=== PATIENT | female | born 1975 | race Caucasian/White ===

== ENCOUNTER 2019-03-20 00:03 | Emergency (ER) | payer OTHER ==
--- NOTE | 2019-03-20 01:03 | ER Document Report ---
ED Extremity Problem, Lower - General Chief Complaint: Feet Swelling Stated Complaint: SWOLLEN FEET Time Seen by Provider: 03/20/19 00:48 Notes: Patient is a 43-year-old female that comes emergency department for chief complaint of swelling to both of her feet. She denies swelling in her legs, she denies shortness of breath, dyspnea on exertion, chest pain, injury, fever, or any other complaints. She denies having this before. Past medical history of hypertension, type 2 diabetes, diabetic neuropathy, and GERD. She is medicated for all of her medical conditions. TRAVEL OUTSIDE OF THE [place] IN LAST 30 DAYS: No - Related Data Allergies/Adverse Reactions: No Known Allergies Allergy (Verified 03/20/19 00:05) Past Medical History - General Information source: Patient - Social History Smoking Status: Never Smoker Frequency of alcohol use: None Drug Abuse: None Lives with: Family Family History: Reviewed & Not Pertinent - Past Medical History Cardiac Medical History: Reports: Hx Hypercholesterolemia, Hx Hypertension Endocrine Medical History: Reports: Hx Diabetes Mellitus Type 2 Review of Systems - Review of Systems Constitutional: No symptoms reported EENT: No symptoms reported Cardiovascular: See HPI Respiratory: No symptoms reported Gastrointestinal: No symptoms reported Genitourinary: No symptoms reported Female Genitourinary: No symptoms reported Musculoskeletal: See HPI Skin: No symptoms reported Hematologic/Lymphatic: No symptoms reported Neurological/Psychological: No symptoms reported Physical Exam - Vital signs Vitals: Temp Pulse Resp BP Pulse Ox 99.1 F 94 20 156/114 H 96 03/20/19 00:10 03/20/19 00:10 03/20/19 00:10 03/20/19 00:03/20/19 00:10 - Notes Notes: GENERAL: Alert, interacts well. No acute distress. HEAD: Normocephalic, atraumatic. EYES: Pupils equal, round, and reactive to light. Extraocular movements intact. ENT: Oral mucosa moist, tongue midline. Oropharynx unremarkable. Airway patent. LUNGS: Clear to auscultation bilaterally, no wheezes, rales, or rhonchi. No respiratory distress. HEART: Regular rate and rhythm. No murmur ABDOMEN: Soft, non-tender. Non-distended. Bowel sounds present in all 4 q uadrants. GENITOURINARY: Deferred EXTREMITIES: Moves all 4 extremities spontaneously. Very mild edema to both feet, 1+ and minimal pitting. No edema to the legs. Normal capillary refill and sensation. Normal extremities otherwise. BACK: no cervical, thoracic, lumbar midline tenderness. No saddle anesthesia, normal distal neurovascular exam. Moves all extremities in full range of motion. NEUROLOGICAL: Alert and oriented x3. Normal speech. Cranial nerves II through XII grossly intact. PSYCH: Normal affect, normal mood. SKIN: Warm, dry, normal turgor. No rashes or lesions noted. Course - Re-evaluation Re-evalutation: Patient has very mild swelling of both feet. There is no severe edema, the legs have no edema, she has clear lungs, her blood pressure is borderline elevated but otherwise her exam is unremarkable. Patient also now tells me that she was supposed to be taking spironolactone daily but now ran out. I suspect this is the cause of her venous insufficiency. She does not have a history of CHF. Chemistry is unremarkable with normal albumin and unremarkable potassium. Patient given a dose of Lasix and potassium, replaced her spironolactone, she states she will follow close with her primary care provider for additional management, she states she will return if she develops chest pain, shortness of breath, worsening swelling, or any other concerning symptoms - Vital Signs Vital signs: Temp Pulse Resp BP Pulse Ox 98.5 F 72 16 167/100 H 96 03/20/19 03:47 03/20/19 03:47 03/20/19 03:47 03/20/19 03:47 03/20/19 00:10 - Laboratory Result Diagrams: 03/20/19 01:21 03/20/19 01:21 Laboratory results interpreted by me: 03/20/19 01:21 Sodium 136.6 L Glucose 201 H AST 54 H Alkaline Phosphatase 128 H Discharge - Discharge Clinical Impression: Bilateral swelling of feet, Has run out of medications Condition: Stable Disposition: HOME, SELF-CARE Additional Instructions: Your evaluation is reassuring including your chemistries. Resume your spironolactone, use the KAVITHA stockings especially at night, elevate your feet when possible. The swelling in your feet should resolve with time. Follow-up with your primary care provider for additional management. Return if you worsen including increased swelling, shortness of breath, chest pain, or any other concerning or worsening symptoms. Prescriptions: Spironolactone 100 mg PO DAILY #30 tablet Forms: Elevated Blood Pressure
[2019-03-20 01:53] LABS: ALBUMIN 3.7 g/dL (3.5-5.0); ALKALINE PHOSPHATASE 128 U/L (38-126); ANION GAP 9 (5-19); ASPARTATE AMINO TRANSFERASE 54 U/L (14-36); BILIRUBIN,DIRECT 0.1 mg/dL (0.0-0.4); BILIRUBIN,TOTAL 0.4 mg/dL (0.2-1.3); BLOOD UREA NITROGEN 10 mg/dL (7-20); CARBON DIOXIDE 26 mmol/L (22-30); CHLORIDE 102 mmol/L (98-107); GLUCOSE 201 mg/dL (75-110); POTASSIUM 3.9 mmol/L (3.6-5.0); TOTAL PROTEIN 6.9 g/dL (6.3-8.2)
[2019-03-20] MEDS ORDERED: POTASSIUM CHLORIDE 10 MEQ CAPSULE.ER PO ONE (02:20)
[2019-03-20] MEDS ORDERED: FUROSEMIDE 40 MG TABLET PO ONE (02:21)
[2019-03-20 03:49] VITALS: BP 167/100
== END 2019-03-20 03:47 | disposition home or self-care (01) ==
LOC: ER 00:03
DX: M79.89 Other specified soft tissue disorders (principal); Z79.899 Other long term (current) drug therapy
CPT/HCPCS: 36415; 80053; 84703

== ENCOUNTER 2019-06-11 18:47 | Emergency (ER) | payer MEDICARE ==
[2019-06-11] MEDS ORDERED: ONDANSETRON HCL INJ/PF 4 MG/2 ML SDV IV ONE (19:44)
[2019-06-11] MEDS ORDERED: NORMAL SALINE 1000 ML 1,000 ML IV ONE (19:44)
--- NOTE | 2019-06-11 19:46 | ER Document Report ---
ED Medical Screen (RME) - General Chief Complaint: High Blood Sugar Stated Complaint: DIZZY/BLOOD SUGAR ISSUES Time Seen by Provider: 06/11/19 19:41 Notes: 43-year-old female with [id number] diabetes mellitus presents to the emergency department with chief complaint of high blood sugar. Patient states that she checked her sugar at home and it was in the tight high 200s and she typically runs in the low 100s. She is has associated dizziness and the feeling of "being drunk" with nausea but no vomiting. She denies abdominal pain, denies urinary symptoms or polyuria. Exam: Well-appearing in no acute distress, lungs clear to auscultation all grijalva, regular cardiac rate and rhythm no murmurs, abdominal exam deferred I have greeted and performed a rapid initial assessment of this patient. A comprehensive ED assessment and evaluation of the patient, analysis of test results and completion of medical decision making process will be conducted by an additional ED providers. TRAVEL OUTSIDE OF THE [place] IN LAST 30 DAYS: No - Related Data Allergies/Adverse Reactions: No Known Allergies Allergy (Verified 03/20/19 00:05) Home Medications: glipizide daily Past Medical History - Social History Chew tobacco use (# tins/day): No - Past Medical History Cardiac Medical History: Reports: Hx Hypercholesterolemia, Hx Hypertension Pulmonary Medical History: Reports: Hx Asthma Endocrine Medical History: Reports: Hx Diabetes Mellitus Type 2 GI Medical History: Reports: Hx Gastroesophageal Reflux Disease Past Surgical History: Reports: Hx Tubal Ligation Physical Exam - Vital signs Vitals: Temp Pulse Resp BP Pulse Ox 97.6 F 801 H 16 119/63 97 06/11/19 19:24 06/11/19 19:24 06/11/19 19:24 06/11/19 19:24 06/11/19 19:24 Course - Vital Signs Vital signs: Temp Pulse Resp BP Pulse Ox 97.6 F 80 16 119/63 97 06/11/19 19:38 06/11/19 19:38 06/11/19 19:38 06/11/19 19:38 06/11/19 19:38
[2019-06-11 20:36] LABS: ABSOLUTE EOSINOPHILS # (AUTO) 0.2 10^3/uL (0.0-0.6); ABSOLUTE LYMPHOCYTES (AUTO) 1.6 10^3/uL (0.5-4.7); ABSOLUTE MONOCYTES (AUTO) 0.8 10^3/uL (0.1-1.4); ABSOLUTE NEUT (AUTO) 8.1 10^3/uL (1.7-8.2); BASOPHILS % (AUTO) 0.4 % (0-2); HEMATOCRIT 39.8 % (36.0-47.0); LYMPHOCYTES % (AUTO) 15.1 % (13-45); MEAN CORPUSCULAR HEMOGLOBIN 32.3 pg (27.0-33.4); MEAN CORPUSCULAR HGB CONC 35.3 g/dL (32.0-36.0); MEAN CORPUSCULAR VOLUME 92 fl (80-97); MONOCYTES % (AUTO) 7.2 % (3-13); PLATELET COUNT 408 10^3/uL (150-450); RED BLOOD COUNT 4.35 10^6/uL (3.72-5.28); RED CELL DISTRIBUTION WIDTH 13.1 % (11.5-14.0); SEGMENTED NEUTROPHILS % (AUTO) 75.3 % (42-78); TOTAL CELLS COUNTED % (AUTO) 100 %; WHITE BLOOD COUNT 10.8 10^3/uL (4.0-10.5)
[2019-06-11 20:48] LABS: AMORPHOUS SEDIMENT,URINE TRACE /HPF; APPEARANCE,URINE TURBID; BILIRUBIN,URINE NEGATIVE (NEGATIVE); COLOR,URINE YELLOW; GLUCOSE, URINE 150 mg/dL (NEGATIVE); KETONES,URINE NEGATIVE (NEGATIVE); LEUKOCYTE ESTERASE,URINE TRACE (NEGATIVE); NITRITE,URINE NEGATIVE (NEGATIVE); PROTEIN,URINE 30 mg/dL (NEGATIVE); URINE SPECIFIC GRAVITY 1.027; UROBILINOGEN,URINE NEGATIVE mg/dL (<2.0)
[2019-06-11 20:49] LABS: ALKALINE PHOSPHATASE 123 U/L (38-126); ANION GAP 10 (5-19); ASPARTATE AMINO TRANSFERASE 29 U/L (14-36); BILIRUBIN,DIRECT 0.1 mg/dL (0.0-0.4); BILIRUBIN,TOTAL 0.4 mg/dL (0.2-1.3); BLOOD UREA NITROGEN 15 mg/dL (7-20); CALCIUM 9.2 mg/dL (8.4-10.2); CARBON DIOXIDE 31 mmol/L (22-30); CHLORIDE 89 mmol/L (98-107); GLUCOSE 139 mg/dL (75-110); POTASSIUM 4.7 mmol/L (3.6-5.0); TOTAL PROTEIN 7.5 g/dL (6.3-8.2)
[2019-06-11] MEDS ORDERED: ONDANSETRON HCL INJ/PF 4 MG/2 ML SDV ONE (21:59)
--- NOTE | 2019-06-11 23:07 | ER Document Report ---
ED Blood Sugar Problem - General Chief Complaint: High Blood Sugar Stated Complaint: DIZZY/BLOOD SUGAR ISSUES Time Seen by Provider: 06/11/19 19:41 Mode of Arrival: Ambulatory Information source: Patient Notes: Patient is a 43-year-old female presenting to the emergency department with chief complaint of elevated blood glucose over the last few days. She also reports urinary frequency but denies any urgency or dysuria. She denies fevers, nausea, vomiting or diarrhea. She reports she takes glipizide 10 mg twice daily and has been compliant with her medications. She just moved to the area a few months ago and has not set a primary care yet. She reports that her blood sugars usually run in the 100 range but in the over the last few days they have been in the 200 range. She does report being compliant with a diabetic diet. TRAVEL OUTSIDE OF THE [place] IN LAST 30 DAYS: No - Related Data Allergies/Adverse Reactions: No Known Allergies Allergy (Verified 03/20/19 00:05) Home Medications: glipizide daily Past Medical History - General Information source: Patient - Social History Smoking Status: Never Smoker Chew tobacco use (# tins/day): No Family History: Reviewed & Not Pertinent Patient has suicidal ideation: No Patient has homicidal ideation: No - Past Medical History Cardiac Medical History: Reports: Hx Hypercholesterolemia, Hx Hypertension Pulmonary Medical History: Reports: Hx Asthma Endocrine Medical History: Reports: Hx Diabetes Mellitus Type 2 GI Medical History: Reports: Hx Gastroesophageal Reflux Disease Past Surgical History: Reports: Hx Tubal Ligation Review of Systems - Review of Systems Constitutional: Other - Elevated blood sugar at home, polyuria and polydipsia EENT: No symptoms reported Cardiovascular: No symptoms reported Respiratory: No symptoms reported Gastrointestinal: No symptoms reported Genitourinary: No symptoms reported Female Genitourinary: No symptoms reported Musculoskeletal: No symptoms reported Skin: No symptoms reported Hematologic/Lymphatic: No symptoms reported Neurological/Psychological: No symptoms reported Physical Exam - Vital signs Vitals: Temp Pulse Resp BP Pulse Ox 97.6 F 801 H 16 119/63 97 06/11/19 19:24 06/11/19 19:24 06/11/19 19:24 06/11/19 19:24 06/11/19 19:24 - Notes Notes: PHYSICAL EXAMINATION: GENERAL: Morbidly obese and in no acute distress. HEAD: Atraumatic, normocephalic. EYES: Pupils equal round and reactive to light, extraocular movements intact, conjunctiva are normal. ENT: Nares patent, oropharynx clear without exudates. Moist mucous membranes. NECK: Normal range of motion, supple without lymphadenopathy LUNGS: Breath sounds clear to auscultation bilaterally and equal. No wheezes rales or rhonchi. HEART: Regular rate and rhythm without murmurs ABDOMEN: Soft, nontender, nondistended abdomen. No guarding, no rebound. No masses appreciated. Female : deferred Musculoskeletal: Normal range of motion, no pitting or edema. No cyanosis. NEUROLOGICAL: Cranial nerves grossly intact. Normal speech, normal gait. Normal sensory, motor exams PSYCH: Normal mood, normal affect. SKIN: Warm, Dry, normal turgor, no rashes or lesions noted. Course - Re-evaluation Re-evalutation: 06/11/19 23:03 Laboratory 06/11/19 06/11/19 06/11/19 20:10 20:10 20:10 WBC 10.8 H RBC 4.35 Hgb 14.0 Hct 39.8 MCV 92 MCH 32.3 MCHC 35.3 RDW 13.1 Plt Count 408 Lymph % (Auto) 15.1 [place] % (Auto) 7.2 Eos % (Auto) 2.0 Baso % (Auto) 0.4 Absolute Neuts (auto) 8.1 Absolute Lymphs (auto) 1.6 Absolute Monos (auto) 0.8 Absolute Eos (auto) 0.2 Absolute Basos (auto) 0.0 Seg Neutrophils % 75.3 Sodium 130.1 L Potassium 4.7 Chloride 89 L Carbon Dioxide 31 H Anion Gap 10 BUN 15 Creatinine 0.66 Est GFR ( Amer) > 60 Est GFR (MDRD) Non-Af > 60 Glucose 139 H Calcium 9.2 Total Bilirubin 0.4 Direct Bilirubin 0.1 Neonat Total Bilirubin Not Reportable Neonat Direct Bilirubin Not Reportable Neonat Indirect Bili Not Reportable AST 29 ALT 28 Alkaline Phosphatase 123 Total Protein 7.5 Albumin 4.0 Lipase 127.8 Urine Color YELLOW Urine Appearance TURBID Urine pH 5.0 Ur Specific [place] 1.027 Urine Protein 30 H Urine Glucose (UA) 150 H Urine Ketones NEGATIVE Urine Blood NEGATIVE Urine Nitrite NEGATIVE Urine Bilirubin NEGATIVE Urine Urobilinogen NEGATIVE Ur Leukocyte Esterase TRACE H Urine WBC (Auto) 1 Urine RBC (Auto) 1 Urine Bacteria (Auto) TRACE Squamous Epi Cells Auto 5 Amorphous Sediment Auto TRACE Urine Mucus (Auto) MOD Urine Ascorbic Acid NEGATIVE Urine HCG, Qual NEGATIVE Patient alert, oriented, labs as outlined above. Patient does have moderate leukocyte esterase on her urinalysis. Since she is symptomatic I will start her on a 5-day course of antibiotics. Blood glucose levels have been in the normal range here in the emergency department with no evidence of diabetic ketoacidosis. Patient's daughter showed up to the bedside with 2 large bags of fast food. Patient was educated that that is probably not the best choice for her diabetes. Patient encouraged to follow-up with primary care, I gave her a list of PCPs in the area. Strict ED return precautions were discussed, patient verbalized understanding and agreement with same. The patient's emergency department workup and current diagnosis were explained to the patient and or family. Follow-up instructions were provided. Medic ations if prescribed were discussed. Instructions for when to return to the emergency department including specific worrisome symptoms were discussed with the patient and/or family. - Vital Signs Vital signs: Temp Pulse Resp BP Pulse Ox 97.4 F 73 16 105/72 100 06/11/19 23:19 06/11/19 23:19 06/11/19 23:19 06/11/19 23:19 06/11/19 23:19 - Laboratory Result Diagrams: 06/11/19 20:10 06/11/19 20:10 Laboratory results interpreted by me: 06/11/19 06/11/19 06/11/19 20:10 20:10 20:10 WBC 10.8 H Sodium 130.1 L Chloride 89 L Carbon Dioxide 31 H Glucose 139 H Urine Protein 30 H Urine Glucose (UA) 150 H Ur Leukocyte Esterase TRACE H Discharge - Discharge Clinical Impression: Hyperglycemia, Urinary frequency Condition: Stable Disposition: HOME, SELF-CARE Additional Instructions: Your urine shows findings consistent with a urinary tract infection. Please take all the antibiotics as directed even if your symptoms have improved. Please follow-up with your primary care physician as needed. Return to emergency room if you develop fever >101F, persistent vomiting, become lethargic, have severe pain in your sides, or any other symptoms that are concerning to you. Your blood sugar was within normal ranges today. Please continue to take your glipizide as prescribed. Please follow-up with primary care, a list of primary care providers has been outlined for you below. Return to the emergency department with any new or worsening symptoms. Prescriptions: Cephalexin [Keflex] 500 mg PO BID #14 capsule
[2019-06-11 23:22] VITALS: BP 105/72
== END 2019-06-11 23:22 | disposition home or self-care (01) ==
LOC: ER 18:47
DX: E11.65 Type 2 diabetes mellitus with hyperglycemia (principal); R35.0 Frequency of micturition; E78.00 Pure hypercholesterolemia, unspecified; I10 Essential (primary) hypertension; E66.01 Morbid (severe) obesity due to excess calories; Z98.51 Tubal ligation status
CPT/HCPCS: 99283; 96361; 96374; 36415; 83690; 85025; 81025; 80053; 81001; J2405; J7030